=== PATIENT | male | born 1995 ===

== ENCOUNTER 2018-02-05 16:52 | Emergency (ER) | payer OTHER ==
[2018-02-05 17:27] VITALS: RESP 18
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
--- NOTE | 2018-02-05 17:57 | RAD ---
PROCEDURE: Right Hand Radiographs. HISTORY: trauma COMPARISON: None. FINDINGS: BONES: Oblique intra-articular displaced fracture base of 5th metacarpal. No other fracture identified. JOINTS: Normal. No osteoarthritic changes. SOFT TISSUES: Normal. OTHER FINDINGS: None. IMPRESSION: Oblique displaced intra-articular fracture base of 5th metacarpal.
[2018-02-05 18:04] VITALS: BP 146/90; PULSE 76; TEMP 99.1
[2018-02-05 20:32] VITALS: O2SAT 100
== END 2018-02-05 18:00 | disposition home or self-care (01) ==
LOC: C.ER 16:52
DX: S62.316A Displaced fracture of base of fifth metacarpal bone, right hand, initial encounter for closed fracture (principal); W22.8XXA Striking against or struck by other objects, initial encounter; Y92.521 Bus station as the place of occurrence of the external cause